=== PATIENT | male | born 1990 | race Caucasian/White ===

== ENCOUNTER 2018-03-23 16:35 | Emergency (ER) | payer OTHER ==
--- NOTE | 2018-03-23 17:29 | ED Physician Documentation ---
PD HPI GI BLEED - Stated complaint Stated Complaint: BLACK STOOL - Chief complaint Chief Complaint: Abd Pain - History obtained from History obtained from: Patient - History of Present Illness Timing - onset: Last night Timing - details: Abrupt onset, Still present (he reports 4 dark stools since last night. Not large amounts. No red/blood per se.) Associated symptoms: Black/tarry stool. No: Vomiting, BRBPR, Constipation Contributing factors: NSAID use (he has had some congestion, cough, malaise and had used Ibuprofen a few times for general aches.) Worsened by: No: Eating Similar symptoms before: Has not had sx before Recently seen: Not recently seen Review of Systems Constitutional: reports: Myalgias. denies: Fever, Chills Nose: reports: Rhinorrhea / runny nose, Congestion Throat: denies: Sore throat Respiratory: reports: Cough GI: reports: Bloody / black stool. denies: Abdominal Pain, Nausea, Vomiting, Diarrhea : denies: Dysuria Neurologic: denies: Generalized weakness, Near syncope, Altered mental status PD PAST MEDICAL HISTORY - Past Medical History Past Medical History: No Cardiovascular: None Respiratory: None Neuro: None Endocrine/Autoimmune: None GI: None : None HEENT: None Psych: None Musculoskeletal: None Derm: None - Past Surgical History Past Surgical History: No - Present Medications Home Medications: Ambulatory Orders Medication Instructions Recorded Confirmed Famotidine 20 mg PO DAILY #30 tablet 03/23/18 03/25/18 Sucralfate [Carafate] 1 gm PO TID #15 tablet 03/23/18 03/25/18 - Allergies Allergies/Adverse Reactions: Allergies Allergy/AdvReac Type Severity Reaction Status Date / Time No Known Drug Allergies Allergy Verified 03/25/18 06:27 - Social History Does the pt smoke?: No Smoking Status: Never smoker Does the pt drink ETOH?: Yes ETOH Use: Wine, Beer Does the pt have substance abuse?: No - Immunizations Immunizations are current?: Yes - POLST Patient has POLST: No PD ED PE NORMAL - Vitals Vital signs reviewed: Yes - General General: Alert and oriented X 3, No acute distress, Well developed/nourished - HEENT HEENT: Ears normal, Pharynx benign - Neck Neck: Supple, no meningeal sign, No adenopathy - Cardiac Cardiac: RRR, No murmur - Respiratory Respiratory: Clear bilaterally - Abdomen Abdomen: Normal bowel sounds, Soft, Non tender, Non distended - Male Male : Deferred - Rectal Rectal: Other (no hemorrhoids. stool in vault is soft but not diarrhea. It does have dark color; no lester blood. Tests guiac positive. ) - Derm Derm: Normal color, Warm and dry - Neuro Neuro: Alert and oriented X 3, No motor deficit, Normal speech Results - Vitals Vitals: Oxygen O2 Source Room air - Labs Labs: Laboratory Tests 03/23/18 03/23/18 18:40 18:40 WBC 6.8 RBC 3.69 L Hgb 11.0 L Hct 31.9 L MCV 86.5 MCH 29.9 MCHC 34.6 RDW 12.3 Plt Count 240 MPV 8.7 Neut # (Auto) 4.7 Lymph # (Auto) 1.5 [place] # (Auto) 0.4 Eos # (Auto) 0.1 Baso # (Auto) 0.0 Absolute Nucleated RBC 0.00 Nucleated RBC % 0.0 Sodium 136 Potassium 4.3 Chloride 104 Carbon Dioxide 28 Anion Gap 4.0 L BUN 30 H Creatinine 1.3 H Estimated GFR (MDRD) 67 L Glucose 81 Calcium 8.4 L Total Bilirubin 0.4 AST 17 ALT 21 Alkaline Phosphatase 61 Total Protein 7.3 Albumin 4.2 Globulin 3.1 Albumin/Globulin Ratio 1.4 Lipase 24 PD MEDICAL DECISION MAKING - ED course Complexity details: considered differential (stable GI bleed, presume upper given the melena character. Will start H2 phyllis and carafate. Recheck with PCP in 2-3 days and presume will want EGD if persists and likely anyway to verify cause. ), d/w patient Departure - Departure Disposition: 01 Home, Self Care Clinical Impression: GI bleeding Qualifiers: GI bleed type/associated pathology: gastrointestinal hemorrhage with hematemesis Qualified Code(s): K92.0 - Hematemesis Condition: Stable Record reviewed to determine appropriate education?: Yes Instructions: ED Hematochezia Stable Follow-Up: JERSEY RANKIN MD [Primary Care Provider] - [facility]] Prescriptions: Famotidine 20 mg PO DAILY #30 tablet Sucralfate [Carafate] 1 gm PO TID #15 tablet Comments: Your blood count is good as is your blood pressure. There is blood in the stool that you are having. This most commonly is from an irritated stomach such as gastritis. It can relate to viral illness that you have had and possibly the anti-inflammatory such as ibuprofen. Drink lots of fluids. Do not take any ibuprofen or naproxen. He can use Tylenol if needed for pains. Use some acid reducing medicines such as famotidine daily for a month. For the next 5 days also coat the stomach with Carafate 3 times a day. This should make the stomach environment less acidic and allow for healing. There should be tapering and stopping of the dark stool over the next couple of days. Follow-up with your primary care if it continues more than a couple of days. You could call the surgery center as well for follow-up with potential for endoscopy to verify the cause of the bleeding. Most commonly this will be gastritis or a mild ulcer. Return if significant bleeding, dizzy, belly pain, lightheaded. Discharge Date/Time: 03/23/18 19:27
[2018-03-23] MEDS ORDERED: FAMOTIDINE 20 MG TABLET PO STA (17:55)
[2018-03-23] MEDS ORDERED: MAG HYDROX/AL HYDROX/SIMETH 30 ML UDC PO STA (17:55)
[2018-03-23 18:52] LABS: BASOPHILS % (AUTO) 0.5 %; EOSINOPHILS # (AUTO) 0.1 10^3/uL (0.0-0.7); EOSINOPHILS % (AUTO) 1.9 %; LYMPHOCYTES # (AUTO) 1.5 10^3/uL (1.5-3.5); LYMPHOCYTES % (AUTO) 21.7 %; MEAN CORPUSCULAR HEMOGLOBIN 29.9 pg (27.0-31.0); MEAN CORPUSCULAR HGB CONC 34.6 g/dL (32.0-36.0); MEAN CORPUSCULAR VOLUME 86.5 fL (80.0-94.0); MEAN PLATELET VOLUME 8.7 fL (7.4-11.4); MONOCYTES # (AUTO) 0.4 10^3/uL (0.0-1.0); NEUTROPHILS # (AUTO) 4.7 10^3/uL (1.5-6.6); NEUTROPHILS % (AUTO) 69.9 %; PLT - PLATELET COUNT 240 10^3/uL (130-450); RED BLOOD COUNT 3.69 10^6/uL (4.70-6.10); RED CELL DISTRIBUTION WIDTH 12.3 % (12.0-15.0); WHITE BLOOD COUNT 6.8 x10^3/uL (4.8-10.8)
[2018-03-23 19:06] VITALS: BP 115/73
[2018-03-23 19:07] LABS: ALBUMIN 4.2 g/dL (3.2-5.5); ALBUMIN/GLOBULIN RATIO 1.4 (1.0-2.2); BILIRUBIN,TOTAL 0.4 mg/dL (0.2-1.0); CALCIUM 8.4 mg/dL (8.5-10.3); CREATININE 1.3 mg/dL (0.6-1.2); TOTAL PROTEIN 7.3 g/dL (6.7-8.2)
== END 2018-03-23 19:27 | disposition home or self-care (01) ==
LOC: ED 16:35
DX: K92.1 Melena (principal)
CPT/HCPCS: 36415; 80053; 83690; 85025; 99283; A9270

== ENCOUNTER 2018-07-20 09:24 | Day surgery (SDC) | payer OTHER ==
[2018-07-20] MEDS ORDERED: LACTATED RINGERS 1,000 ML IV ONE ×3 (10:02→12:15)
[2018-07-20] MEDS ORDERED: LIDO GARGLE 30 ML BOTTLE ONE (11:46)
[2018-07-20] MEDS ORDERED: MIDAZOLAM 2 MG/2 ML VIAL IVP ONE (11:47)
[2018-07-20] MEDS ORDERED: fentaNYL 100 MCG/2 ML VIAL IVP ONE (11:47)
[2018-07-20] MEDS ORDERED: LIDO GARGLE 30 ML BOTTLE TOP ONE (11:51)
[2018-07-20 12:31] VITALS: BP 109/65
== END 2018-07-20 09:25 | disposition home or self-care (01) ==
LOC: SDS 09:24
PROVIDERS: ATTEND Surgery
PROC: 0DJ08ZZ Inspection of Upper Intestinal Tract, Via Natural or Artificial Opening Endoscopic (ICD-10-PCS; principal; 2018-07-20 11:00)
DX: Z09 Encounter for follow-up examination after completed treatment for conditions other than malignant neoplasm (principal); Z87.11 Personal history of peptic ulcer disease; K44.9 Diaphragmatic hernia without obstruction or gangrene
CPT/HCPCS: 43235; A9270; J7120

== ENCOUNTER 2021-02-10 18:15 | Emergency (ER) | payer OTHER ==
[2021-02-10 19:08] LABS: BASOPHILS % (AUTO) 0.3 %; EOSINOPHILS # (AUTO) 0.2 10^3/uL (0.0-0.7); EOSINOPHILS % (AUTO) 2.5 %; HCT - HEMATOCRIT 37.1 % (42.0-52.0); HGB - HEMOGLOBIN 12.9 g/dL (14.0-18.0); LYMPHOCYTES # (AUTO) 1.6 10^3/uL (1.5-3.5); LYMPHOCYTES % (AUTO) 26.5 %; MEAN CORPUSCULAR HEMOGLOBIN 29.5 pg (27.0-31.0); MEAN CORPUSCULAR HGB CONC 34.8 g/dL (32.0-36.0); MEAN CORPUSCULAR VOLUME 84.9 fL (80.0-94.0); MEAN PLATELET VOLUME 10.8 fL (7.4-11.4); MONOCYTES # (AUTO) 0.4 10^3/uL (0.0-1.0); MONOCYTES % (AUTO) 7.2 %; NEUTROPHILS # (AUTO) 3.8 10^3/uL (1.5-6.6); NEUTROPHILS % (AUTO) 63.3 %; PLT - PLATELET COUNT 199 10^3/uL (130-450); RED BLOOD COUNT 4.37 10^6/uL (4.70-6.10); RED CELL DISTRIBUTION WIDTH 12.1 % (12.0-15.0)
[2021-02-10 19:16] LABS: ALBUMIN 4.6 g/dL (3.2-5.5); ALBUMIN/GLOBULIN RATIO 1.4 (1.0-2.2); BILIRUBIN,TOTAL 0.5 mg/dL (0.2-1.0); CALCIUM 8.9 mg/dL (8.5-10.3); CREATININE 0.8 mg/dL (0.6-1.2); POTASSIUM 3.7 mmol/L (3.5-5.0); TOTAL PROTEIN 7.9 g/dL (6.7-8.2)
[2021-02-10 19:21] LABS: BILIRUBIN,URINE NEGATIVE (NEGATIVE); GLUCOSE, URINE (UA) NEGATIVE (NEGATIVE); KETONES,URINE (UA) NEGATIVE (NEGATIVE); LEUKOCYTE ESTERASE, URINE NEGATIVE (NEGATIVE); NITRITE,URINE NEGATIVE (NEGATIVE); OCCULT BLOOD,URINE NEGATIVE (NEGATIVE); PROTEIN,URINE NEGATIVE (NEGATIVE); UROBILINOGEN,URINE 0.2 (NORMAL) E.U./dL (NORMAL)
[2021-02-10 19:23] LABS: CLARITY,URINE CLEAR (CLEAR)
[2021-02-10] MEDS ORDERED: ONDANSETRON 4 MG/2 ML VIAL IVP STA (19:30)
--- NOTE | 2021-02-10 19:33 | ED Physician Documentation ---
History of Present Illness - Stated complaint Stated Complaint: BLOOD IN STOOL - Chief complaint Chief Complaint: Abd Pain - History obtained from History obtained from: Patient - Additonal information Additional information: 30-year-old man with history of bleeding duodenal ulcer 3 years ago status post endoscopy with cautery presents with 3 black tarry stools today, most recent just prior to arrival. Patient had a brown BM yesterday but it is now blackish. endorses some stomach upset but no specific abd pain. also with nausea but no vomiting. denies fevers, back pain urinary sx, dizziness. Review of Systems Ten Systems: 10 systems reviewed and negative Constitutional: denies: Fever, Chills GI: reports: Nausea, Bloody / black stool, Other ("upset stomach"). denies: Abdominal Pain, Vomiting Neurologic: reports: Other (no dizziness or weakness). denies: Generalized weakness PD PAST MEDICAL HISTORY - Past Medical History Past Medical History: Yes Cardiovascular: None Respiratory: None Neuro: None Endocrine/Autoimmune: None GI: Ulcers : None HEENT: None Psych: None Musculoskeletal: None Derm: None Other Past Medical History: Duodenal Ulcer & had 1 blodd trnsfusion in the past due to it. - Past Surgical History Past Surgical History: No General: EGD - Present Medications Home Medications: Ambulatory Orders Medication Instructions Recorded Confirmed No Known Home Medications 02/10/21 02/11/21 - Allergies Allergies/Adverse Reactions: Allergies Allergy/AdvReac Type Severity Reaction Status Date / Time No Known Drug Allergies Allergy Verified 02/10/21 18:17 - Social History Does the pt smoke?: No Smoking Status: Never smoker Does the pt drink ETOH?: Yes Does the pt have substance abuse?: No - Immunizations Immunizations are current?: Yes - POLST Patient has POLST: No PD ED PE NORMAL - Vitals Vital signs reviewed: Yes - General General: Alert and oriented X 3, No acute distress, Well developed/nourished - HEENT HEENT: Atraumatic, PERRL, EOMI, Moist mucous membranes - Neck Neck: Supple, no meningeal sign - Cardiac Cardiac: RRR - Respiratory Respiratory: No respiratory distress, Clear bilaterally - Abdomen Abdomen: Non tender, Non distended - Derm Derm: Normal color, Warm and dry - Extremities Extremities: No deformity - Neuro Neuro: Alert and oriented X 3 - Psych Psych: Normal mood, Normal affect Results - Vitals Vitals: Oxygen O2 Source Room air - Labs Labs: Microbiology 02/10/21 19:34 Occult Blood - Final Stool Laboratory Tests 02/10/21 02/10/21 02/10/21 18:55 18:55 18:55 WBC 6.0 RBC 4.37 L Hgb 12.9 L Hct 37.1 L MCV 84.9 MCH 29.5 MCHC 34.8 RDW 12.1 Plt Count 199 MPV 10.8 Neut # (Auto) 3.8 Lymph # (Auto) 1.6 [place] # (Auto) 0.4 Eos # (Auto) 0.2 Baso # (Auto) 0.0 Absolute Nucleated RBC 0.00 Nucleated RBC % 0.0 Sodium 138 Potassium 3.7 Chloride 103 Carbon Dioxide 26 Anion Gap 9.0 BUN 26 H Creatinine 0.8 Estimated GFR (MDRD) 114 Glucose 93 Calcium 8.9 Total Bilirubin 0.5 AST 19 ALT 20 Alkaline Phosphatase 51 Total Protein 7.9 Albumin 4.6 Globulin 3.3 Albumin/Globulin Ratio 1.4 Lipase 31 Urine Color Urine Clarity Urine pH Ur Specific [place] Urine Protein Urine Glucose (UA) Urine Ketones Urine Occult Blood Urine Nitrite Urine Bilirubin Urine Urobilinogen Ur Leukocyte Esterase Ur Microscopic Review Urine Culture Comments Blood Type A POSITIVE Antibody Screen NEGATIVE 02/10/21 19:15 WBC RBC Hgb Hct MCV MCH MCHC RDW Plt Count MPV Neut # (Auto) Lymph # (Auto) [place] # (Auto) Eos # (Auto) Baso # (Auto) Absolute Nucleated RBC Nucleated RBC % Sodium Potassium Chloride Carbon Dioxide Anion Gap BUN Creatinine Estimated GFR (MDRD) Glucose Calcium Total Bilirubin AST ALT Alkaline Phosphatase Total Protein Albumin Globulin Albumin/Globulin Ratio Lipase Urine Color YELLOW Urine Clarity CLEAR Urine pH 6.0 Ur Specific [place] 1.025 Urine Protein NEGATIVE Urine Glucose (UA) NEGATIVE Urine Ketones NEGATIVE Urine Occult Blood NEGATIVE Urine Nitrite NEGATIVE Urine Bilirubin NEGATIVE Urine Urobilinogen 0.2 (NORMAL) Ur Leukocyte Esterase NEGATIVE Ur Microscopic Review NOT INDICATED Urine Culture Comments NOT INDICATED Blood Type Antibody Screen PD MEDICAL DECISION MAKING - ED course ED course: 30yM p/w likely UGIB, stable HB. advised to f.u with GI for repeat endoscopy. strict return precautions given . Departure - Departure Disposition: 01 Home, Self Care Clinical Impression: Upper GI bleed Condition: Good Instructions: ED Bleed UGI Stable Follow-Up: Toni Phillips MD [Provider Admit Priv/Credential] - Sharon Garcia MD [Provider Admit Priv/Credential] - Comments: You were seen in the emergency department for rectal bleeding. Your duodenal ulcer may have started bleeding again. Your blood level is in a safe range for you to go home and follow up with your doctor for referral to GI. You will need to have a repeat endoscopy as an outpatient. Please return to the emergency department if you start to experience dizziness, chest pain, shortness of breath, large-volume bloody or black stools, bloody vomiting, or if you have any other new or worsening symptoms or other concerns. Discharge Date/Time: 02/10/21 22:37
[2021-02-10 22:29] VITALS: BP 118/77
== END 2021-02-10 22:37 | disposition home or self-care (01) ==
LOC: ED 18:15
DX: K92.2 Gastrointestinal hemorrhage, unspecified (principal)
CPT/HCPCS: 36415; 80053; 81001; 81003; 82270; 82272; 82274; 83690; 85025; 86850; 86900; 86901; 87086; 96374; 99283

== ENCOUNTER 2021-02-11 08:14 | Outpatient (CLI) | payer OTHER | END 2021-02-11 08:15 | disposition critical access hospital (66) | LOC: EMS 08:14 | DX: K92.1 Melena (principal); K92.0 Hematemesis | CPT/HCPCS: A0425; A0427 ==

== ENCOUNTER 2021-02-11 08:30 | Emergency (ER) | payer OTHER ==
[2021-02-11] MEDS ORDERED: SODIUM CHLORIDE 0.9% 1,000 ML IV STA (08:40)
[2021-02-11] MEDS ORDERED: PANTOPRAZOLE 40 MG VIAL IV STA (08:40)
[2021-02-11] MEDS ORDERED: ONDANSETRON 4 MG/2 ML VIAL IVP STA (08:40)
--- NOTE | 2021-02-11 08:43 | ED Physician Documentation ---
History of Present Illness - Stated complaint Stated Complaint: SYNCOPE - History obtained from History obtained from: Patient - Additonal information Additional information: Patient is brought to the emergency department by EMS for chief complaint of syncopal episode this morning. The patient states that he has been having dark stools for the last couple of days and that he began to feel slightly nauseated last night. He was seen in the emergency department at that time, but found to be without concerning findings and discharged home. This morning, he got up to use the bathroom and became lightheaded. After having a bowel movement, he suddenly became very nauseated and vomited what appeared to be lester blood. His came into the bathroom at that time and found him slumped over with his head in the toilet bowl. Medics state they were called just after this and that when they got there, the patient was alert, but appeared very pale. When they were able to get a blood pressure on him, it was 101 systolic. Patient denies any abdominal pain. He states that before yesterday, he was not having any symptoms whatsoever. 3 years ago, he was found to have a bleeding ulcer and had an endoscopy with Dr. Phillips. He states that since then, he has not been found to have any further bleeding and has not had need for surgical follow-up since. Patient is otherwise healthy. Review of Systems Ten Systems: 10 systems reviewed and negative Constitutional: reports: Reviewed and negative Eyes: reports: Reviewed and negative Ears: reports: Reviewed and negative Nose: reports: Reviewed and negative Throat: reports: Reviewed and negative Cardiac: reports: Reviewed and negative Respiratory: reports: Reviewed and negative GI: reports: Nausea, Vomiting, Hematemesis, Bloody / black stool : reports: Reviewed and negative Skin: reports: Reviewed and negative Musculoskeletal: reports: Reviewed and negative Neurologic: reports: Reviewed and negative Psychiatric: reports: Reviewed and negative Endocrine: reports: Reviewed and negative Immunocompromised: reports: Reviewed and negative PD PAST MEDICAL HISTORY - Past Medical History Cardiovascular: None Respiratory: None Neuro: None Endocrine/Autoimmune: None GI: Ulcers : None HEENT: None Psych: None Musculoskeletal: None Derm: None - Past Surgical History Past Surgical History: No General: EGD - Present Medications Home Medications: Ambulatory Orders Medication Instructions Recorded Confirmed No Known Home Medications 02/10/21 02/11/21 - Allergies Allergies/Adverse Reactions: Allergies Allergy/AdvReac Type Severity Reaction Status Date / Time No Known Drug Allergies Allergy Verified 02/10/21 18:17 - Social History Does the pt smoke?: No Smoking Status: Never smoker Does the pt drink ETOH?: Yes Does the pt have substance abuse?: No - Immunizations Immunizations are current?: Yes - POLST Patient has POLST: No PD ED PE NORMAL - Vitals Vital signs reviewed: Yes - General General: Alert and oriented X 3, No acute distress, Well developed/nourished - HEENT HEENT: Atraumatic, PERRL, EOMI, Moist mucous membranes - Neck Neck: Supple, no meningeal sign - Cardiac Cardiac: RRR, No murmur, Strong equal pulses - Respiratory Respiratory: No respiratory distress, Clear bilaterally - Abdomen Abdomen: Soft, Non distended, Other (Slight tenderness, left upper quadrant.) - Back Back: No CVA TTP - Derm Derm: Warm and dry, No rash, Other (Mild pallor.) - Extremities Extremities: No deformity - Neuro Neuro: Alert and oriented X 3, special needs child caregiver 2-12 intact, Normal speech - Psych Psych: Normal mood, Normal affect Results - Vitals Vitals: Vital Signs - 24 hr 02/11/21 02/11/21 02/11/21 08:39 09:05 09:22 Temperature 36.5 C Heart Rate 77 27 L 60 Respiratory 20 12 14 Rate Blood Pressure 99/59 L 88/50 L 102/54 L O2 Saturation 98 96 02/11/21 02/11/21 02/11/21 09:30 09:38 10:04 Temperature 97.7 C H Heart Rate 71 61 55 L Respiratory 16 9 L 13 Rate Blood Pressure 95/56 L 102/62 115/62 O2 Saturation 02/11/21 02/11/21 02/11/21 10:33 11:04 11:16 Temperature 36.5 C 37.0 C 36.6 C Heart Rate 59 L 69 66 Respiratory 13 12 16 Rate Blood Pressure 103/62 115/57 L 127/79 O2 Saturation 02/11/21 02/11/21 02/11/21 12:03 12:22 13:07 Temperature 37.3 C Heart Rate 57 L 62 71 Respiratory 13 12 16 Rate Blood Pressure 116/73 114/70 122/74 O2 Saturation 96 02/11/21 14:06 Temperature Heart Rate 68 Respiratory 17 Rate Blood Pressure 112/67 O2 Saturation 98 Oxygen O2 Source Room air - Labs Labs: Laboratory Tests 02/11/21 02/11/21 02/11/21 08:50 08:50 08:50 WBC 4.1 L RBC 3.12 L Hgb 9.3 L Hct 26.9 L MCV 86.2 MCH 29.8 MCHC 34.6 RDW 12.3 Plt Count 170 MPV 10.4 Neut # (Auto) 2.8 Lymph # (Auto) 0.9 L [place] # (Auto) 0.3 Eos # (Auto) 0.1 Baso # (Auto) 0.0 Absolute Nucleated RBC 0.00 Nucleated RBC % 0.0 PT 15.6 H INR 1.4 H Sodium Potassium Chloride Carbon Dioxide Anion Gap BUN Creatinine Estimated GFR (MDRD) Glucose Calcium Total Bilirubin AST ALT Alkaline Phosphatase Total Protein Albumin Globulin Albumin/Globulin Ratio Nasal Adenovirus (PCR) Nasal B. parapertussis DNA (PCR) Nasal Coronavir 229E PCR Nasal Coronavir HKU1 PCR Nasal Coronavir NL63 PCR Nasal Coronavir OC43 PCR Nasal Enterovir/Rhinovir PCR Nasal Influenza B PCR Nasal Influenza A PCR Nasal Parainfluen 1 PCR Nasal Parainfluen 2 PCR Nasal Parainfluen 3 PCR Nasal Parainfluen 4 PCR Nasal RSV (PCR) Nasal B.pertussis DNA PCR Nasal C.pneumoniae (PCR) Mac Human Metapneumo PCR Nasal M.pneumoniae (PCR) Nasal SARS-CoV-2 (PCR) Blood Type A POSITIVE Antibody Screen NEGATIVE Crossmatch IS Only See Detail 02/11/21 02/11/21 08:50 12:08 WBC RBC Hgb Hct MCV MCH MCHC RDW Plt Count MPV Neut # (Auto) Lymph # (Auto) [place] # (Auto) Eos # (Auto) Baso # (Auto) Absolute Nucleated RBC Nucleated RBC % PT INR Sodium 136 Potassium 4.7 Chloride 107 Carbon Dioxide 25 Anion Gap 4.0 L BUN 36 H Creatinine 0.9 Estimated GFR (MDRD) 100 Glucose 129 H Calcium 7.7 L Total Bilirubin 0.5 AST 16 ALT 15 Alkaline Phosphatase 40 L Total Protein 5.8 L Albumin 3.3 Globulin 2.5 Albumin/Globulin Ratio 1.3 Nasal Adenovirus (PCR) NOT DETECTED Nasal B. parapertussis DNA (PCR) NOT DETECTED Nasal Coronavir 229E PCR NOT DETECTED Nasal Coronavir HKU1 PCR NOT DETECTED Nasal Coronavir NL63 PCR NOT DETECTED Nasal Coronavir OC43 PCR NOT DETECTED Nasal Enterovir/Rhinovir PCR NOT DETECTED Nasal Influenza B PCR NOT DETECTED Nasal Influenza A PCR NOT DETECTED Nasal Parainfluen 1 PCR NOT DETECTED Nasal Parainfluen 2 PCR NOT DETECTED Nasal Parainfluen 3 PCR NOT DETECTED Nasal Parainfluen 4 PCR NOT DETECTED Nasal RSV (PCR) NOT DETECTED Nasal B.pertussis DNA PCR NOT DETECTED Nasal C.pneumoniae (PCR) NOT DETECTED Mac Human Metapneumo PCR NOT DETECTED Nasal M.pneumoniae (PCR) NOT DETECTED Nasal SARS-CoV-2 (PCR) NOT DETECTED Blood Type Antibody Screen Crossmatch IS Only PD MEDICAL DECISION MAKING - ED course Complexity details: reviewed old records, reviewed results, re-evaluated patient, considered differential, d/w patient, d/w family, d/w alliances consultant ED course: Patient arrived with 2 large-bore IVs in place, and already had received 600 cc of IV fluid. He did look pale and I was concerned that he had continued to bl eed overnight, Even beyond what he had vomited. The patient was given antiemetics and an IV dose of Protonix initially. Saline bolus was continued for complete liter. During this time, labs were obtained and the patient was found to have dropped his hemoglobin from 12.9 last night to 9.3 today. I type and screen had been ordered and was pending; however, I was called to the room urgently because the patient's heart rate had dropped into the 20s briefly and his blood pressure had dropped to 80. The patient was pale, perisyncopal, and diaphoretic, and while I did consider a vagal reaction, I was concerned about the episode in the setting of acute blood loss and symptomatic anemia, so I did order 2 units of O-, unmatched blood to be transfused stat. During the 30 minutes after the episode, the patient's blood pressure did slowly improve. Heart rate bounced back very quickly to the 60s, with occasional dips into the 50s. After receiving the transfusion, as well as a total of 2 L of normal saline, the patient had improved color and blood pressure. He had been placed on RT tree at high drip as well as a Protonix drip. I had spoken with Dr. Montejo, who had been the patient surgeon 3 years ago when he had a similar event; however, Dr. Montejo was out of town and would not be able to get to the patient and a timely manner so he requested that I speak with the on-call surgeon. I spoke with Dr. Singh, who stated that he did not do upper GI work, and the patient would be best off being transferred. We did reach out to [facility], and the case was discussed with both Dr. Lyons of gastroenterology at [facility] and Dr. Awad, the technical training specialist on-call. The patient was accepted in transfer by Dr. Awad, and Dr. Carney agreed to consult. Discussed all of this with the patient's , and both she and the patient were agreeable to the plan for transfer. No further episodes of emesis occurred in the emergency department. - Critical Care Time(min): 45 Comments: Critical care time was necessary, due to high probability of imminent decline and , secondary to upper GI hemorrhage with severe, acute blood loss, hypovolemic shock, and symptomatic anemia. Time Includes: Direct patient care, Review records, Reassess patient, Document care, Coordinate care, Medical consult, Family consult for tx dec, See progress note Data interpretation: Labs, Pulse ox, Cardiac output, See progress note Departure - Departure Disposition: 02 Transfer Acute Care Hosp Clinical Impression: Upper GI hemorrhage, Acute blood loss anemia, Hemorrhagic shock Condition: Critical Discharge Date/Time: 02/11/21 14:33
[2021-02-11 09:00] LABS: BASOPHILS % (AUTO) 0.5 %; EOSINOPHILS # (AUTO) 0.1 10^3/uL (0.0-0.7); EOSINOPHILS % (AUTO) 1.7 %; HCT - HEMATOCRIT 26.9 % (42.0-52.0); HGB - HEMOGLOBIN 9.3 g/dL (14.0-18.0); LYMPHOCYTES # (AUTO) 0.9 10^3/uL (1.5-3.5); LYMPHOCYTES % (AUTO) 22.7 %; MEAN CORPUSCULAR HEMOGLOBIN 29.8 pg (27.0-31.0); MEAN CORPUSCULAR HGB CONC 34.6 g/dL (32.0-36.0); MEAN CORPUSCULAR VOLUME 86.2 fL (80.0-94.0); MEAN PLATELET VOLUME 10.4 fL (7.4-11.4); MONOCYTES # (AUTO) 0.3 10^3/uL (0.0-1.0); MONOCYTES % (AUTO) 7.1 %; NEUTROPHILS # (AUTO) 2.8 10^3/uL (1.5-6.6); NEUTROPHILS % (AUTO) 67.8 %; PLT - PLATELET COUNT 170 10^3/uL (130-450); RED BLOOD COUNT 3.12 10^6/uL (4.70-6.10); RED CELL DISTRIBUTION WIDTH 12.3 % (12.0-15.0); WHITE BLOOD COUNT 4.1 x10^3/uL (4.8-10.8)
[2021-02-11 09:12] LABS: ALBUMIN 3.3 g/dL (3.2-5.5); ALBUMIN/GLOBULIN RATIO 1.3 (1.0-2.2); BILIRUBIN,TOTAL 0.5 mg/dL (0.2-1.0); CALCIUM 7.7 mg/dL (8.5-10.3); CREATININE 0.9 mg/dL (0.6-1.2); POTASSIUM 4.7 mmol/L (3.5-5.0); TOTAL PROTEIN 5.8 g/dL (6.7-8.2)
[2021-02-11 09:28] LABS: INR 1.4 (0.8-1.2); PT - PROTHROMBIN TIME 15.6 secs (9.9-12.6)
[2021-02-11] MEDS ORDERED: OCTREOTIDE 500 MCG in SODIUM CHLORIDE 0.9% 100ML 95 ML IV STA (09:40)
[2021-02-11] MEDS ORDERED: PANTOPRAZOLE 80 MG in SODIUM CHLORIDE 0.9% 100ML 100 ML IV STA (12:03)
[2021-02-11 13:32] LABS: B. PARAPERTUSSIS- RESP PCR PAN NOT DETECTED; B. PERTUSSIS- RESP PCR PANEL NOT DETECTED; C. PNEUMONIAE- RESP PCR PANEL NOT DETECTED; CORONAVIRUS 229E-RESP PCR NOT DETECTED; CORONAVIRUS HKU1-RESP PCR NOT DETECTED; CORONAVIRUS NL63-RESP PCR NOT DETECTED; CORONAVIRUS OC43-RESP PCR NOT DETECTED; HUMAN METAPNEUMOVIRUS NOT DETECTED; INFLUENZA A- RESP PCR PANEL NOT DETECTED; INFLUENZA B - RESP PCR PANEL NOT DETECTED; M. PNEUMONIAE- RESP PCR PANEL NOT DETECTED; PARAINFLUENZA VIRUS 1 NOT DETECTED; PARAINFLUENZA VIRUS 2 NOT DETECTED; PARAINFLUENZA VIRUS 3 NOT DETECTED; PARAINFLUENZA VIRUS 4 NOT DETECTED; RHINOVIRUS/ENTEROVIRUS NOT DETECTED; RSV- RESP PCR PANEL NOT DETECTED; SARS-CoV-2 -RESP PCR PANEL NOT DETECTED
[2021-02-11 14:07] VITALS: BP 112/67
== END 2021-02-11 14:33 | disposition short-term general hospital (02) ==
LOC: EDUNIT# → ED 08:30
DX: D62 Acute posthemorrhagic anemia (principal); K92.2 Gastrointestinal hemorrhage, unspecified; R57.8 Other shock; Z20.822 Contact with and (suspected) exposure to COVID-19
CPT/HCPCS: 0202U; 36415; 36430; 80053; 85025; 85610; 86850; 86900; 86901; 86920; 96361; 96374; 96375; 96376; 99291; J2354; P9016

== ENCOUNTER 2021-02-11 14:39 | Outpatient (CLI) | payer OTHER | END 2021-02-11 14:40 | disposition short-term general hospital (02) | LOC: EMS 14:39 | PROVIDERS: ATTEND Emergency Medicine | DX: K92.2 Gastrointestinal hemorrhage, unspecified (principal); D64.9 Anemia, unspecified | CPT/HCPCS: A0425; A0426 ==